=== PATIENT | female | born 1980 | race Caucasian/White ===

== ENCOUNTER 2019-03-02 09:58 | Emergency (ER) | payer OTHER ==
[~2019-03-02] VITALS: Ht 170.2 cm; Wt 111.2 kg
[~2019-03-02 09:58] MED LIST: CEPH-357 PO; NO HOME MEDS
[2019-03-02 10:01] VITALS: BP 211/106
== END 2019-03-02 11:13 | disposition home or self-care (01) ==
LOC: ER 09:58
DX: S60.222A Contusion of left hand, initial encounter (principal); F17.200 Nicotine dependence, unspecified, uncomplicated; F10.99 Alcohol use, unspecified with unspecified alcohol-induced disorder; Z98.890 Other specified postprocedural states; Z88.0 Allergy status to penicillin; Z88.1 Allergy status to other antibiotic agents; Z79.899 Other long term (current) drug therapy; W18.39XA Other fall on same level, initial encounter; Y93.89 Activity, other specified; Y92.89 Other specified places as the place of occurrence of the external cause; Y99.8 Other external cause status; Y90.9 Presence of alcohol in blood, level not specified
CPT/HCPCS: 73130; 99284

== ENCOUNTER 2019-03-20 15:34 | Outpatient (CLI) | payer OTHER | END 2019-03-20 16:14 | disposition home or self-care (01) | LOC: ORTHO 15:34 | PROVIDERS: ATTEND Orthopaedic Surgery | DX: S69.92XD Unspecified injury of left wrist, hand and finger(s), subsequent encounter (principal); Z87.891 Personal history of nicotine dependence; X58.XXXD Exposure to other specified factors, subsequent encounter | CPT/HCPCS: 73130; G0463 ==

== ENCOUNTER 2019-05-02 15:36 | Outpatient (CLI) | payer OTHER | END 2019-05-02 23:59 | disposition home or self-care (01) | LOC: RAD 15:36 | PROVIDERS: ATTEND Orthopaedic Surgery | DX: S69.92XA Unspecified injury of left wrist, hand and finger(s), initial encounter (principal); Z88.0 Allergy status to penicillin; Z88.1 Allergy status to other antibiotic agents; X58.XXXA Exposure to other specified factors, initial encounter; Y93.89 Activity, other specified; Y92.89 Other specified places as the place of occurrence of the external cause; Y99.8 Other external cause status | CPT/HCPCS: 73221 ==

== ENCOUNTER 2021-03-06 10:22 | Emergency (ER) | payer BC ==
[~2021-03-06] VITALS: Ht 170.2 cm; Wt 113.6 kg
[2021-03-06 10:23] VITALS: BP 208/101
[2021-03-06] MEDS ORDERED: TETanus/Pertussis (Acell)/Diphther VAC/PF (Tdap-Adult) 0.5ml syringe IMVAC ONE (11:30)
[2021-03-06] MEDS ORDERED: DOXY100C76 PO (11:56)
[2021-03-06] MEDS ORDERED: METR-159 PO (11:56)
== END 2021-03-06 12:04 | disposition home or self-care (01) ==
LOC: ER 10:22
DX: S61.250A Open bite of right index finger without damage to nail, initial encounter (principal); R03.0 Elevated blood-pressure reading, without diagnosis of hypertension; W55.01XA Bitten by cat, initial encounter; Y93.89 Activity, other specified; Y92.89 Other specified places as the place of occurrence of the external cause; Y99.8 Other external cause status; Z88.0 Allergy status to penicillin; Z88.1 Allergy status to other antibiotic agents; Z79.899 Other long term (current) drug therapy
CPT/HCPCS: 90471; 90715; 99283

== ENCOUNTER 2021-11-08 12:26 | Outpatient (CLI) | payer BC | END 2021-11-08 23:59 | disposition home or self-care (01) | LOC: RAD 12:26 | PROVIDERS: ATTEND Nurse Practitioner | DX: M48.07 Spinal stenosis, lumbosacral region (principal); M51.27 Other intervertebral disc displacement, lumbosacral region; M43.16 Spondylolisthesis, lumbar region; M41.86 Other forms of scoliosis, lumbar region; M25.551 Pain in right hip; M25.552 Pain in left hip | CPT/HCPCS: 72148 ==

== ENCOUNTER 2021-12-15 05:20 | Day surgery (SDC) | payer BC ==
[2021-12-08 15:38] LABS: BASOPHILS # (AUTO) 0.1 X10'3 (0-0.2); BASOPHILS % (AUTO) 0.8 % (0-1); EOSINOPHILS # (AUTO) 0.1 X10'3 (0-0.9); EOSINOPHILS % (AUTO) 1.2 % (0-6); LYMPHOCYTES # (AUTO) 2.2 X10'3 (1.1-4.8); LYMPHOCYTES % (AUTO) 20.7 % (21-51); MEAN CORPUSCULAR HEMOGLOBIN 32.3 PG (27.0-31.0); MEAN CORPUSCULAR HGB CONC 34.1 g/dL (33.0-36.5); MEAN CORPUSCULAR VOLUME 94.7 FL (78-98); MEAN PLATELET VOLUME 9.3 FL (7.4-10.4); MONOCYTES # (AUTO) 0.8 X10'3 (0-0.9); MONOCYTES % (AUTO) 7.9 % (2-12); NEUTROPHILS # (AUTO) 7.3 X10'3 (1.8-7.7); NEUTROPHILS % (AUTO) 69.4 % (42-75); PRE OP HEMATOCRIT 46.3 % (35.0-45.0); PRE OP HEMOGLOBIN 15.8 g/dL (12.0-16.0); PRE OP PLATELET COUNT 251 X10'3 (140-440); RED BLOOD COUNT 4.89 X10'6 (4.20-5.60); RED CELL DISTRIBUTION WIDTH 13.3 % (11.5-14.5)
[2021-12-08 15:47] LABS: ALKALINE PHOSPHATASE 68 IU/L (46-116); BLOOD UREA NITROGEN 13 MG/DL (7-18); BUN/CREATININE RATIO 15.3 (6.6-38.0); CALCIUM 9.3 MG/DL (8.5-10.1); CHLORIDE 103 MMOL/L (99-107); CREATININE 0.85 MG/DL (0.40-0.90); PRE OP ALT 76 U/L (30-65); PRE OP ANION GAP 8 (8-16); PRE OP AST 57 U/L (10-37); PRE OP BILIRUB, TOTAL 0.3 MG/DL (0.0-1.0); PRE OP GLUCOSE 81 MG/DL (70-104); PRE OP POTASSIUM 3.8 MMOL/L (3.4-5.1); PRE OP SODIUM 139 MMOL/L (135-145); TOTAL CARBON DIOXIDE 28.3 MMOL/L (24-32); eGFR 74 ML/MIN
[2021-12-08 17:16] LABS: HCG SERUM QL NEGATIVE
[~2021-12-15] VITALS: Ht 170.2 cm; Wt 112.3 kg
[2021-12-15] VITALS (10 sets, daily range): BP systolic 139–200; BP diastolic 77–118
[~2021-12-15 05:20] MED LIST changes: -CEPH-357 PO; +CHOL400T58 PO; +CYAN500T71 PO; +FISH400C3 PO; +GABA-530 PO; -NO HOME MEDS; +TRAZ-251 PO; +VALS1TAB73 PO; +ringers solution, lacted 1,000 ML IV SCH
[2021-12-15] MEDS ORDERED: gentamicin inj 410 MG in normal saline 100ml IV soln 89.75 ML IV ONE (05:30)
[2021-12-15] MEDS ORDERED: famotidine 20mg tablet PO ONE (05:30)
[2021-12-15] MEDS ORDERED: GENTAMICIN IV ONE (05:30)
[2021-12-15] MEDS ORDERED: NS IV ONE (05:30)
[2021-12-15] MEDS ORDERED: clindamycin-Cleocin 900mg/D5W 50 ML IV ONE (05:30)
[2021-12-15 06:20] LABS: CLARITY,URINE CLEAR (Clear); COLOR,URINE YELLOW (Yellow); GLUCOSE, URINE NEGATIVE (Neg); KETONES,URINE NEGATIVE (Neg); LEUKOCYTE ESTERASE ,URINE NEGATIVE (Neg); NITRITES, URINE NEGATIVE (Neg); OCCULT BLOOD,URINE NEGATIVE (Neg); PH,URINE 6.5 (4.8-8.0); PROTEIN,URINE NEGATIVE (Neg); UROBILINOGEN,URINE 0.2 E.U/dL (0.2-1.0)
[2021-12-15 06:25] LABS: UA COLLECTION TYPE NON-SPECIFIED
[2021-12-15] MEDS ORDERED: epiNEPHrine 1 mg/ml inj ONE (06:49)
[2021-12-15] MEDS ORDERED: neomy sulf/polymyxin B sulf. GU irrigation 1ml amp IR ONE (06:50)
[2021-12-15] MEDS ORDERED: vasoPRESSIN 20 units/ml inj. ONE (06:50)
[2021-12-15] MEDS ORDERED: BUPIVAcaine/PF 2.5 mg/ml (0.25%) 30ml vial ONE (06:50)
[2021-12-15] MEDS ORDERED: fentaNYL /PF 50mcg/ml 5ml ampule ONE (07:16)
[2021-12-15] MEDS ORDERED: midazolam 1 mg/ML 2ml injection ONE (07:16)
[2021-12-15] MEDS ORDERED: propofol inj 20 ML IV ONE (07:17)
[2021-12-15] MEDS ORDERED: LIDOcaine 2% (20mg/ml) 5ml vial ONE (07:17)
[2021-12-15] MEDS ORDERED: rocuronium 10mg/ml inj IV ONE ×2 (07:17→07:35)
[2021-12-15] MEDS ORDERED: albuterol 60 PUFF/8GM Inhaler IH ONE (07:35)
[2021-12-15] MEDS ORDERED: sevoflurane 250ml liquid IH ONE (07:35)
[2021-12-15] MEDS ORDERED: meperidine/PF 25mg/ml syringe IV PRN ×3 (08:00)
[2021-12-15] MEDS ORDERED: ondansetron/PF 4mg/2ml inj IV PRN (08:00)
[2021-12-15] MEDS ORDERED: ringers solution, lacted 1,000 ML IV SCH (08:00)
[2021-12-15] MEDS ORDERED: morphine 4 MG/ML inj SYRINge IV PRN (08:00)
[2021-12-15] MEDS ORDERED: morphine 2 MG/ML inj. syringe IV PRN (08:00)
[2021-12-15] MEDS ORDERED: proCHLORperazine 10 MG/2 ml inj IV PRN (08:00)
[2021-12-15] MEDS ORDERED: dexamethasone sod phosphate 4mg/ml inj. ONE (08:22)
[2021-12-15] MEDS ORDERED: ondansetron/PF 4mg/2ml inj ONE (08:22)
[2021-12-15] MEDS ORDERED: neostigmine methylsulfate 1 MG/ML 10ml vial ONE (09:01)
[2021-12-15] MEDS ORDERED: glycopyrrolate 0.2mg/ml inj ONE (09:01)
[2021-12-15] MEDS ORDERED: meperidine/PF 25mg/ml syringe ONE (09:32)
[2021-12-15] MEDS ORDERED: sugammadex 200mg/2ml injection IV ONE (09:39)
--- NOTE | 2021-12-15 09:40 | NUR ---
Received from OR via , accompanied by Anesthesiologist and report given by Anesthesiolgist. patient waking up still, no s/s of pain, obstructive sleep apnea at times, saima pad with undies no active drainage, 20g lue, scd and f/c draining clear yellow urine. v/s stable
--- NOTE | 2021-12-15 11:20 | NUR ---
patient a&ox4, denies pain, fresh saima pad with undies no active drainage, 20g lue d/c, scd off and f/c d/c and patient has voided 200+cc urine. v/s wnl. i have reviewed d/c instructions with patient and she and have verbalized understanding. patient d/c home with and all belongings
== END 2021-12-15 11:20 | disposition home or self-care (01) ==
LOC: PAS 05:20
PROVIDERS: ATTEND Obstetrics & Gynecology Obstetrics
DX: N92.1 Excessive and frequent menstruation with irregular cycle (principal); N94.6 Dysmenorrhea, unspecified; N94.89 Other specified conditions associated with female genital organs and menstrual cycle; F17.210 Nicotine dependence, cigarettes, uncomplicated; Z88.1 Allergy status to other antibiotic agents; I10 Essential (primary) hypertension; F41.9 Anxiety disorder, unspecified; Z79.899 Other long term (current) drug therapy; Z98.890 Other specified postprocedural states; Z88.8 Allergy status to other drugs, medicaments and biological substances; Z88.0 Allergy status to penicillin; G43.909 Migraine, unspecified, not intractable, without status migrainosus
CPT/HCPCS: 36415; 58552; 71046; 80053; 81003; 82948; 84703; 85025; 86885; 86900; 86901; 87811; 93005; J0171; J1100; J1580; J2175; J2250; J2405; J2704; J2710; J3010; J3490; J7030; J7120; Z7506; Z7508; Z7512; A4314; A4615; A4618; A7000

== ENCOUNTER 2023-06-11 09:34 | Emergency (ER) | payer BC ==
[~2023-06-11] VITALS: Ht 167.6 cm; Wt 106.9 kg
[~2023-06-11 09:34] MED LIST changes: -ringers solution, lacted 1,000 ML IV SCH
[2023-06-11 09:59] VITALS: BP 196/107; PULSE 89; RESP 16; TEMP 98.3; O2SAT 98
[2023-06-11] MEDS ORDERED: PRED20TA PO (11:14)
[2023-06-11] MEDS ORDERED: ALBU8HFA INH (11:14)
== END 2023-06-11 13:44 | disposition home or self-care (01) ==
LOC: ER 09:34
DX: J22 Unspecified acute lower respiratory infection (principal); Z72.89 Other problems related to lifestyle; Z88.0 Allergy status to penicillin; Z79.899 Other long term (current) drug therapy
CPT/HCPCS: 71045; 99283

== ENCOUNTER → 2023-10-10 | Outpatient (CLI) | payer BC ==
[2023-10-10 07:28] LABS: BASOPHILS # (AUTO) 0.1 X10'3 (0-0.2); EOSINOPHILS # (AUTO) 0.2 X10'3 (0-0.9); EOSINOPHILS % (AUTO) 2.2 % (0-6); HEMATOCRIT 45.2 % (35.0-45.0); HEMOGLOBIN 15.8 g/dl (12.0-16.0); LYMPHOCYTES # (AUTO) 1.4 X10'3 (1.1-4.8); LYMPHOCYTES % (AUTO) 20.2 % (21-51); MEAN CORPUSCULAR VOLUME 97.1 FL (78-98); MEAN PLATELET VOLUME 9.3 FL (7.4-10.4); MONOCYTES # (AUTO) 0.5 X10'3 (0-0.9); MONOCYTES % (AUTO) 7.7 % (2-12); NEUTROPHILS # (AUTO) 4.7 X10'3 (1.8-7.7); NEUTROPHILS % (AUTO) 68.9 % (42-75); PLATELET COUNT 149 X10'3 (140-440); RED BLOOD COUNT 4.65 X10'6 (4.20-5.60); RED CELL DISTRIBUTION WIDTH 12.8 % (11.5-14.5); WHITE BLOOD COUNT 6.8 X10'3 (4.5-11.0)
[2023-10-10 08:13] LABS: ALANINE AMINOTRANSFERASE 76 U/L (12-78); ALBUMIN 3.5 G/DL (3.4-5.0); ALKALINE PHOSPHATASE 67 IU/L (46-116); ANION GAP 9 (8-16); ASPARTATE AMINO TRANSFERASE 68 U/L (10-37); BILIRUBIN,TOTAL 1.2 MG/DL (0.1-1.0); BLOOD UREA NITROGEN 13 MG/DL (7-18); BUN/CREATININE RATIO 17.1 (10.0-20.0); CALCIUM 8.6 MG/DL (8.5-10.1); CHLORIDE 103 MMOL/L (99-107); CHOL/HDL RATIO 3.2 (0.00-4.99); CHOLESTEROL 185 MG/DL (0-200); CREATININE 0.76 MG/DL (0.40-0.90); GLUCOSE 115 MG/DL (70-104); HDL CHOLESTEROL 58 MG/DL (35-60); LDL CHOLESTEROL 116 MG/DL (50-100); POTASSIUM 3.5 MMOL/L (3.5-5.1); SODIUM 137 MMOL/L (135-145); THYROID STIMULATING HORMONE 4.44 ulU/ml (0.34-4.50); TOTAL CARBON DIOXIDE 25.3 MMOL/L (24-32); TOTAL PROTEIN 7.1 G/DL (6.4-8.2); TRIGLYCERIDES 61 MG/DL (20-135); eGFR 83 ML/MIN
[2023-10-11 15:19] LABS: ANTINUCLEAR ANTIBODIES Negative (Negative)
== END | disposition home or self-care (01) ==
LOC: LAB 06:52
PROVIDERS: ATTEND Nurse Practitioner
DX: Z13.220 Encounter for screening for lipoid disorders (principal); R53.83 Other fatigue; E34.9 Endocrine disorder, unspecified; Z13.1 Encounter for screening for diabetes mellitus; M45.9 Ankylosing spondylitis of unspecified sites in spine
CPT/HCPCS: 36415; 80053; 80061; 82670; 83001; 83002; 83036; 84402; 84403; 84443; 85025; 85651; 86038

== ENCOUNTER 2023-12-10 05:33 | Day surgery (SDC) | payer BC ==
[2023-12-05 12:35] LABS: BASOPHILS % (AUTO) 0.5 % (0-1); EOSINOPHILS # (AUTO) 0.1 X10'3 (0-0.9); EOSINOPHILS % (AUTO) 1.9 % (0-6); LYMPHOCYTES # (AUTO) 1.7 X10'3 (1.1-4.8); LYMPHOCYTES % (AUTO) 24.4 % (21-51); MEAN CORPUSCULAR HEMOGLOBIN 33.7 PG (27.0-31.0); MEAN CORPUSCULAR HGB CONC 34.1 g/dL (33.0-36.5); MEAN CORPUSCULAR VOLUME 98.8 FL (78-98); MEAN PLATELET VOLUME 9.5 FL (7.4-10.4); MONOCYTES # (AUTO) 0.7 X10'3 (0-0.9); MONOCYTES % (AUTO) 9.8 % (2-12); NEUTROPHILS # (AUTO) 4.3 X10'3 (1.8-7.7); NEUTROPHILS % (AUTO) 63.4 % (42-75); PRE OP HEMATOCRIT 48.2 % (35.0-45.0); PRE OP HEMOGLOBIN 16.4 g/dL (12.0-16.0); PRE OP PLATELET COUNT 200 X10'3 (140-440); PRE OP WHITE BLOOD COUNT 6.8 10'3 (4.8-10.8); RED BLOOD COUNT 4.87 X10'6 (4.20-5.60); RED CELL DISTRIBUTION WIDTH 13.3 % (11.5-14.5)
[2023-12-05 12:50] LABS: ALBUMIN/GLOBULIN RATIO 1.1 (1.1-1.5); ALKALINE PHOSPHATASE 77 IU/L (46-116); BLOOD UREA NITROGEN 7 MG/DL (7-18); BUN/CREATININE RATIO 8.4 (10.0-20.0); CALCIUM 9.2 MG/DL (8.5-10.1); CHLORIDE 102 MMOL/L (99-107); CREATININE 0.83 MG/DL (0.40-0.90); PRE OP ANION GAP 7 (8-16); PRE OP AST 85 U/L (10-37); PRE OP BILIRUB, TOTAL 0.7 MG/DL (0.0-1.0); PRE OP GLUCOSE 107 MG/DL (70-104); PRE OP POTASSIUM 3.8 MMOL/L (3.4-5.1); PRE OP SODIUM 138 MMOL/L (135-145); TOTAL CARBON DIOXIDE 29.1 MMOL/L (24-32); TOTAL PROTEIN 7.7 G/DL (6.4-8.2); eGFR 75 ML/MIN
[2023-12-05 13:07] LABS: PRE OP ALT 97 U/L (30-65)
[~2023-12-10] VITALS: Ht 167.6 cm; Wt 101.1 kg
[~2023-12-10 05:33] MED LIST changes: +CHOL100040 PO; -CHOL400T58 PO; -CYAN500T71 PO; -FISH400C3 PO; -GABA-530 PO; +OFLO5DRO6 EACHEYE; -TRAZ-251 PO; +VITAMIN B12 PO; +[UNRECOGNIZED DRUG - CODE]
[2023-12-10 05:40] VITALS: BP 158/102; PULSE 76; RESP 16; TEMP 97.3; O2SAT 96
[2023-12-10] MEDS: ringers solution, lacted 1,000 ML IV SCH (06:20)
[2023-12-10] MEDS: cefazolin 2gm/D5W 100mL 100 ML IV ONE (06:20)
[2023-12-10] MEDS: famotidine 20mg tablet PO ONE (06:20)
[2023-12-10] MEDS ORDERED: LIDOcaine 1% (10mg/ml)w/preservative inj. 20ml MDV ONE (07:25)
[2023-12-10] MEDS ORDERED: BUPIVAcaine 2.5mg/ml inj 50ml vial (contains preservative) ONE (07:25)
[2023-12-10] MEDS ORDERED: midazolam 1 mg/ML 2ml injection ONE (07:48)
[2023-12-10] MEDS ORDERED: fentaNYL/PF 50MCG/1 ML 2ML syringe ONE (07:48)
[2023-12-10] MEDS ORDERED: meperidine/PF 25mg/ml syringe IV PRN ×3 (07:55)
[2023-12-10] MEDS ORDERED: morphine 4 MG/ML inj SYRINge IV PRN (07:55)
[2023-12-10] MEDS ORDERED: labetalol 20mg/4ml (5mg/ml) syringe IV PRN (07:55)
[2023-12-10] MEDS ORDERED: morphine 2 MG/ML inj. syringe IV PRN (07:55)
[2023-12-10] MEDS ORDERED: hydrALAZINE 20mg/ml inj. IV PRN (07:55)
[2023-12-10] MEDS ORDERED: ringers solution, lacted 1,000 ML IV SCH (07:55)
[2023-12-10] MEDS ORDERED: ondansetron/PF 4mg/2ml inj IV PRN (07:55)
[2023-12-10] MEDS ORDERED: proCHLORperazine 10 MG/2 ml inj IV PRN (07:55)
[2023-12-10] MEDS ORDERED: propofol inj 20 ML IV ONE ×3 (08:17→08:22)
[2023-12-10] MEDS ORDERED: LIDOcaine 0.5% (5mg/ml) 50ml vial ONE (08:17)
[2023-12-10] MEDS: BUPIVAcaine 2.5mg/ml inj 50ml vial (contains preservative) SQ ONE (08:35)
[2023-12-10 08:40] VITALS: BP 135/83; PULSE 72; RESP 16; O2SAT 99
[2023-12-10 08:50] VITALS: BP 154/74; PULSE 55; RESP 14; O2SAT 98
[2023-12-10] MEDS: acetaminophen 1,000mg/100ml IV 100 ML IV ONE (08:58)
[2023-12-10 09:00] VITALS: BP 151/79; PULSE 55; RESP 16; O2SAT 99
[2023-12-10] MEDS: HYDROcodone/acetaminophen 5mg/325mg tablet PO ONE (09:01)
[2023-12-10 09:10] VITALS: BP 145/71; PULSE 59; RESP 14; O2SAT 99
[2023-12-10 09:20] VITALS: BP 145/71; PULSE 59; RESP 14; O2SAT 99
== END 2023-12-10 09:20 | disposition home or self-care (01) ==
LOC: PAS 05:33
PROVIDERS: ATTEND Orthopaedic Surgery Hand Surgery
DX: G56.02 Carpal tunnel syndrome, left upper limb (principal); G56.22 Lesion of ulnar nerve, left upper limb; I10 Essential (primary) hypertension; E78.00 Pure hypercholesterolemia, unspecified; E66.9 Obesity, unspecified; G43.909 Migraine, unspecified, not intractable, without status migrainosus; F41.9 Anxiety disorder, unspecified; H40.9 Unspecified glaucoma; F17.200 Nicotine dependence, unspecified, uncomplicated; Z79.891 Long term (current) use of opiate analgesic; Z79.899 Other long term (current) drug therapy; Z90.710 Acquired absence of both cervix and uterus; Z90.722 Acquired absence of ovaries, bilateral; Z98.890 Other specified postprocedural states; Z68.35 Body mass index [BMI] 35.0-35.9, adult; Z88.0 Allergy status to penicillin; Z88.1 Allergy status to other antibiotic agents
CPT/HCPCS: 29848; 36415; 64718; 80053; 82948; 85025; 93005; J0131; J0690; J2250; J2704; J3010; J3490; J7030; J7120; Z7506; Z7512; A4215; A6449; A7000

== ENCOUNTER 2024-06-14 10:26 | Emergency (ER) | payer BC ==
[~2024-06-14] VITALS: Ht 167.6 cm; Wt 105.2 kg
[2024-06-14 10:29] VITALS: TEMP 98.6
[2024-06-14] MEDS ORDERED: DEXAMETHASONE 6 MG TABLET PO SCH ×2 (10:40→10:55)
[2024-06-14] MEDS: DEXAMETHASONE 6 MG TABLET PO ONE (10:53)
[2024-06-14] MEDS: dexamethasone 4mg tablet PO ONE (10:53)
[2024-06-14] MEDS: diphenhydrAMINE 25mg capsule PO ONE (10:53)
[2024-06-14] MEDS: famotidine 20mg tablet PO ONE (13:49)
[2024-06-14 13:57] VITALS: BP 172/77; PULSE 80; RESP 14; O2SAT 98
== END 2024-06-14 13:58 | disposition home or self-care (01) ==
LOC: ER 10:26
DX: T78.49XA Other allergy, initial encounter (principal); Z88.0 Allergy status to penicillin; Z88.1 Allergy status to other antibiotic agents; Z79.899 Other long term (current) drug therapy; Z72.89 Other problems related to lifestyle; X58.XXXA Exposure to other specified factors, initial encounter
CPT/HCPCS: 99284; Q0163; J8540

== ENCOUNTER 2024-10-28 17:21 | Emergency (ER) | payer BC ==
[~2024-10-28] VITALS: Ht 167.6 cm; Wt 92.2 kg
--- NOTE | 2024-10-28 17:36 | Physician Documentation ---
History of Present Illness ~ Chief Complaint: Urinary Symptoms Stated Complaint: UTI Time Seen by MD: 17:29 Primary Medical Doctor: [facility] HPI 44-year-old female presents with one day of dysuria and feeling of urinary frequency, the patient reports some pink tinged urine today. Patient reports no fever. Patient reports that she has had frequent UTIs since her hysterectomy and this feels similar to previous UTIs. Medication Reconciliation Allergies: Coded Allergies: Penicillins (Verified Allergy, Intermediate, HIVES, INDIGESTION, 12/07/23) amoxicillin (Verified Allergy, Intermediate, HIVES, INDIGESTION, 12/07/23) erythromycin base (Verified Allergy, Intermediate, SEVERE INDIGESTION; HIVES, 12/07/23) clindamycin (Verified Allergy, Unknown, 10/28/24) Scheduled Cephalexin*Monohydrate* (Keflex*), 1 CAP PO QID Cholecalciferol (Vitamin D3) (Vitamin D3), 1 CAP PO DAILY, (Reported) Ofloxacin (Ofloxacin), 1 DROP EACHEYE TID, (Reported) Valsartan/Hydrochlorothiazide (Valsartan-Hctz 80-12.5 Mg Tab), 1 TAB PO DAILY, (Reported) [Juan-[id number]], Unknown Dose 10XD, (Reported) [Vitamin B12], 1,000 MCG PO DAILY, (Reported) Past Medical History Past Medical History: Hypertension, UTI Past Surgical History: other Alcohol Use: Occasionally Drug Use: none Lives In: Home Occupation: employed Review of Systems ROS Dysuria as stated above in the HPI, otherwise all systems are reviewed and negative. Physical Exam Vital Signs: Temperature: 97.4, Source: Temporal, Heart Rate: 81, Respiratory Rate: 15, BP: 214/114, Pulse Oximetry: 98, Weight: 92.200 Physical Exam VITALS: Reviewed and as above. GENERAL: Alert, nontoxic appearing, no apparent distress. RESPIRATORY: No increased work of breathing, no respiratory distress, speaking in full clear sentences BACK: No CVA tenderness Progress Results/Orders Results/Orders Completed Orders - SHARRI RAMOS Ua With Microscopic (10/28/24 17:27) Cephalexin Capsule (Keflex Capsule) (10/28/24 18:15) Medications Received in ER Medications (Trade) Dose Ordered Sig/Genet Route PRN Reason Start Time Stop Time Status Last Admin Dose Admin (Keflex capsule) 500 mg ONCE ONCE PO 10/28/24 18:15 10/28/24 18:16 DC 10/28/24 18:22 500 MG Vital Signs 10/28/24 10/28/24 17:23 18:32 Temp 97.4 98.6 Pulse 81 79 Resp 15 18 B/P (MAP) 214/114 192/99 Pulse Ox 98 99 Laboratory Tests Test 10/28/24 17:27 Urine Specimen Description Cln catch midstream Urine Color Straw Urine Clarity Slightly cloudy Urine pH 6.5 Urine Specific [place] <=1.005 Urine Protein Negative Urine Glucose (UA) Negative Urine Ketones Negative Urine Occult Blood Large H Urine Nitrite Negative Urine Bilirubin Negative Urine Urobilinogen 0.2 Urine Leukocyte Esterase Moderate H Urine RBC 10-20 Urine WBC Tntc H Urine Squamous Epithelial Cells Few Urine Bacteria 2+ Urine Mucus Few Volume Urine Centrifuged 10 ml Urine Comment Medical Decision Making Findings This 44-year-old female presented with dysuria and pink tinged urine for the past day, it was reassuring patient reported no abdominal pain, fever, or flank pain. Symptoms consistent with urinary tract infection and supported by urinalysis consistent with urinary tract infection. Patient is otherwise well- appearing and remainder of physical exam benign. Patient was noted to have very elevated blood pressure however she reports no symptoms and reports that she missed her daily doses of hypertension medications today, patient reports she will take antihypertensive medications when she gets home today. Otherwise patient is hemodynamically stable with no other symptoms and appropriate for outpatient follow up. Patient discharged on course of oral antibiotics. Return to care precautions discussed with the patient who verbalized understanding. Urinary Diff Dx:Considerations: Include: Pyelonephritis, Renal failure, Urolithiasis, UTI Departure Disposition: 01 HOME / SELF CARE / HOMELESS Impression: Primary Impression: Acute urinary tract infection Condition: Improved Discharge Instructions: Urinary Tract Infection, Adult Additional Instructions: Please take the antibiotics as prescribed, stay well hydrated. Please follow up with your primary care provider in the next few days. Please return to the emergency department for any new or worsening concerning symptoms. Referrals: NO PRIMARY CARE PROVIDER (PCP) Prescriptions Cephalexin*Monohydrate* (Keflex*) 500 Mg Capsule 1 CAP PO QID for 7 Days, #28 CAP Prov: SHARRI RAMOS [employer]SEM[employer] 10/28/24 Education Educated: Patient Educated regarding: diagnosis, treatment, prognosis, need for follow up Signature Scribe Signature: No scribe Attestation: The note accurately reflects work and decisions made by me.BARBARA Lopez 10/28/24 19:36 SHARRI RAMOS Oct 28, 2024 17:36
[2024-10-28 17:47] LABS: LEUKOCYTE ESTERASE ,URINE MODERATE (Neg); NITRITES, URINE NEGATIVE (Neg); OCCULT BLOOD,URINE LARGE (Neg)
[2024-10-28 18:01] LABS: SQUAMOUS EPITHELIAL CELL,UR FEW /LPF (FEW); UA COLLECTION TYPE CLN CATCH MIDSTREAM
[2024-10-28 18:02] LABS: MUCUS STRANDS FEW /LPF (Neg)
[2024-10-28] MEDS ORDERED: CEPH-585 PO (18:14)
[2024-10-28 18:32] VITALS: BP 192/99; PULSE 79; RESP 18; TEMP 98.6; O2SAT 99
== END 2024-10-28 18:34 | disposition home or self-care (01) ==
LOC: ER 17:22
DX: N39.0 Urinary tract infection, site not specified (principal); I10 Essential (primary) hypertension; Z88.0 Allergy status to penicillin; Z88.1 Allergy status to other antibiotic agents
CPT/HCPCS: 81001; 99283

== ENCOUNTER 2025-03-27 06:35 | Emergency (ER) | payer BC ==
[~2025-03-27] VITALS: Ht 167.6 cm; Wt 109.3 kg
[2025-03-27 07:13] LABS: URINE HCG NEGATIVE (NEG)
[2025-03-27 07:16] LABS: UA COLLECTION TYPE CLN CATCH MIDSTREAM
[2025-03-27 07:18] LABS: SQUAMOUS EPITHELIAL CELL,UR FEW /LPF (FEW)
--- NOTE | 2025-03-27 07:48 | Physician Documentation ---
History of Present Illness ~ Chief Complaint: Urinary Symptoms Stated Complaint: UTI Time Seen by MD: 07:29 OK to notify your PCP?: Yes [facility] Mode of Arrival: POV, Ambulatory HPI 44-year-old female patient with a history of hypertension and chronic tobacco dependency as well as occasional use of cannabis came to the emergency room because of dysuria since last night. She does have nausea vomiting this morning. She says she has been going through as stomach problems for a couple of weeks and that probably causing some stomach upset. Patient denies fever. She told me that she has been having issues with a her blood pressure control even though she is taking valsartan/HCTZ. Patient denies chest pain, shortness a breath. Medication Reconciliation Allergies: Coded Allergies: Penicillins (Verified Allergy, Intermediate, HIVES, INDIGESTION, 03/27/25) amoxicillin (Verified Allergy, Intermediate, HIVES, INDIGESTION, 03/27/25) erythromycin base (Verified Allergy, Intermediate, SEVERE INDIGESTION; HIVES, 03/27/25) clindamycin (Verified Allergy, Unknown, 03/27/25) Scheduled Cholecalciferol (Vitamin D3) (Vitamin D3), 1 CAP PO DAILY, (Reported) Ofloxacin OPHTHALMIC drops (Ofloxacin OPHTHALMIC DROPS), 1 DROP EACHEYE TID, (Reported) Ondansetron 8mg ODT (Ondansetron Odt), 1 TAB PO Q8H Sulfamethoxazole/Trimethoprim (Bactrim Ds Tablet), 1 TAB PO Q12H Valsartan/Hydrochlorothiazide (Valsartan-Hctz 80-12.5 Mg Tab), 1 TAB PO DAILY, (Reported) [Juan-128], Unknown Dose 10XD, (Reported) [Vitamin B12], 1,000 MCG PO DAILY, (Reported) Past Medical History Past Medical History: Hypertension, UTI Past Surgical History: other Alcohol Use: Occasionally Drug Use: none Lives In: Home Occupation: employed Review of Systems ROS As stated above in the HPI, otherwise all systems are reviewed and negative. Physical Exam Vital Signs: Temperature: 97.0, Source: Temporal, Heart Rate: 68, Respiratory Rate: 18, BP: 169/82, Pulse Oximetry: 98, Weight: 109.300 Oxygen Flow Rate: 0 Physical Exam Reviewed vital signs and they are well within normal range blood pressure is sli ghtly elevated. Const: Not in acute cardiopulmonary distress Head: Atraumatic Eyes: Normal Conjunctiva ENT: Normal External Ears, Nose and Mouth. Moist mucous membranes Neck: Full range of motion. No meningismus Resp: Clear to auscultation bilaterally. Normal work of breathing Cardio: Regular rate and rhythm, no murmurs. Skin well perfused Abd: Soft, mild suprapubic tenderness, non-distended. Normal bowel sounds. No rebound or guarding Skin: No petechiae or rashes. Warm and dry Back: No midline or flank tenderness Ext: No cyanosis, or edema Neuro: Awake and alert Psych: Normal Mood and Affect Progress Results/Orders Results/Orders Completed Orders - CHANTAL BALLESTEROS MD Hcg, Ur Ql (03/27/25 06:56) Ua W/Microscopic, Cult If Ind (03/27/25 07:00) Cult Urine + [address] (03/27/25 07:19) Fosfomycin Tromethamine Packet (Monurol (03/27/25 07:45) Vital Signs 03/27/25 03/27/25 03/27/25 06:53 07:07 07:50 Temp 97.0 97.0 Pulse 68 77 Resp 16 18 18 B/P (MAP) 169/82 163/85 Pulse Ox 98 98 O2 Flow Rate 0 Laboratory Tests Test 03/27/25 07:00 Urine Specimen Description Cln catch midstream Urine Color [place] Urine Clarity Cloudy Urine pH Urine Specific [place] Urine Protein Urine Glucose (UA) Urine Ketones Urine Occult Blood Urine Nitrite Urine Bilirubin Urine Urobilinogen Urine Leukocyte Esterase Urine RBC Tntc Urine WBC Tntc H Urine Squamous Epithelial Cells Few Urine Bacteria 1+ Urine Culture Indicated Indicated Volume Urine Centrifuged 10 ml Urine HCG, Qualitative Negative Urine Comment See note Microbiology Date/Time Source Procedure Growth Status 03/27/25 07:19 Urine Clean Catch Midstream Urine Culture - Final MIXED HA ISOLATED.... Complete Medical Decision Making Additional information obtaine: old records Findings During the physical examination, the findings suggestive of acute life- threatening condition such as JVD, tracheal deviation, acidotic breathing, noisy stridorous breath sounds, pulses paradoxus, muffled heart sounds, unequal breath sounds, abdominal rigidity and rebound tenderness, focal neurological deficits, cool clammy skin, severe hypotension, severe tachycardia or bradycardia are absent. Physical examination is unremarkable except for her blood pressure which is slightly elevated. She says she took blood pressure medicine this morning at 06:00.. UA shows WBC TNTC. The patient will be treated with fosfomycin and Bactrim. Patient does not have identifiable emergent medical condition that warrants inpatient medical care at this time. The patient is deemed safe for discharge with outpatient follow up. DISCLAIMER Inadvertent spelling and grammatical errors,inadvertent garage attendant errors,syntax errors, grammatical errors, and spelling errors are likely due to EMR/dictation software use and do not reflect on the overall quality of patient care. Note that the electronic time recorded on this note does not necessarily reflect the actual time of the patient encounter. Urinary Diff Dx:Considerations: Unlikely: AAA Genital Diff Dx:Considerations: Include: Constipation Departure Disposition: HOME / SELF CARE / HOMELESS Impression: Primary Impression: Acute urinary tract infection Condition: Stable Discharge Instructions: Urinary Tract Infection, Adult Additional Instructions: Thank you for coming to our Emergency Department today. Push fluids. Please ask your nurse or provider if you have questions about your care today and do not leave until all your questions have been answered. Please use any medications given as directed and follow-up with your doctor (or the doctor you were referred to) in the next 1-3 days. Your primary care doctor can help to coordinate outpatient specialty care and provide authorization for specialty referral as needed. If you do not have a primary care doctor you may follow up at a [facility]. You may also use motrin and tylenol as needed for fever and/or pain unless instructed otherwise by your provider or nurse. Indications for more urgent follow-up have been discussed, but you may return to the Emergency Department at ANY time for any worrisome or worsening symptoms. [facility] Facilities: [facility] Facilities: [facility]: [facility] [place] Address:[address] [place], [place] [id number] [facility]: [place] Address:Formerly [facility], [id number] [place] [address] [facility]: [facility] Address:[address] [place] [address] [facility] Address:[address] [place] [id number] Registration Billing Pharmacy Referrals [facility] Address:[address] [place] [address] Referrals: NO PRIMARY CARE PROVIDER (PCP) Prescriptions Sulfamethoxazole/Trimethoprim (Bactrim Ds Tablet) 800 Mg-160 Mg Tablet 1 TAB PO Q12H for 7 Days, #14 TAB Prov: CHANTAL BALLESTEROS MD 03/27/25 Ondansetron 8mg ODT (Ondansetron Odt) 8 Mg Tab.rapdis 1 TAB PO Q8H for nausea/vomiting for 2 Days, #6 TAB 0 Refills Prov: CHANTAL BALLESTEROS MD 03/27/25 Signature Scribe Signature: x Attestation: CHANTAL De La Rosa MD Mar 27, 2025 07:48
[2025-03-27] MEDS ORDERED: ONDA-245 PO (07:49)
[2025-03-27] MEDS ORDERED: SULF1TAB49 PO (07:49)
[2025-03-27 07:50] VITALS: BP 163/85; PULSE 77; RESP 18; TEMP 97; O2SAT 98
[2025-03-27] MEDS: FOSFOMYCIN TROMETHAMINE 3 GM PACKET PO ONE (08:02)
== END 2025-03-27 08:04 | disposition home or self-care (01) ==
LOC: ER 06:36
DX: N39.0 Urinary tract infection, site not specified (principal); I10 Essential (primary) hypertension; Z88.0 Allergy status to penicillin; Z88.1 Allergy status to other antibiotic agents; Z87.440 Personal history of urinary (tract) infections; Z79.899 Other long term (current) drug therapy; Z72.89 Other problems related to lifestyle
CPT/HCPCS: 81001; 81025; 87088; 99283